=== PATIENT | male | born 1980 | race Caucasian/White ===

== ENCOUNTER 2017-09-14 11:07 | Emergency (ER) | payer OTHER ==
[~2017-09-14] VITALS: Ht 185.4 cm; Wt 74.8 kg
== END 2017-09-14 12:14 | disposition home or self-care (01) ==
LOC: ER 11:07
DX: S61.216A Laceration without foreign body of right little finger without damage to nail, initial encounter (principal); W26.8XXA Contact with other sharp object(s), not elsewhere classified, initial encounter
CPT/HCPCS: 12001; 90471; 90714; 99283